=== PATIENT | male | born 1945 | race Caucasian/White ===

== ENCOUNTER → 2018-01-26 | Outpatient (CLI) | payer OTHER ==
[~2018-01-26] MED LIST: ACCUNEB SO1.25 MG/1 INH; ADULT LOW DOSE81 MG PO; MULTIVITAMINS PO; NEXIUM20 MG PO; OMEPRAZOLE40 MG PO; PRAVACHOL20 MG PO; PRAVASTATIN SOD20 MG PO; SYMBICORT160 MCG/4. INH; VENTOLIN HFA INH8 GM INH
== END ==
LOC: M.RAD 13:35
DX: J44.1 Chronic obstructive pulmonary disease with (acute) exacerbation (principal); R07.81 Pleurodynia

== ENCOUNTER → 2019-10-17 | Outpatient (CLI) | payer MEDICARE ==
[~2019-10-17] MED LIST changes: +AUGMENTIN 500-1 EACH PO; +CHLORPROMAZINE25 M1 PO
[2019-10-17 10:05] LABS: CREATININE 0.9 mg/dL (0.6-1.3)
== END ==
LOC: M.LAB 10-16 09:54 → M.MRI 11:30
PROVIDERS: ATTEND Internal Medicine
DX: R42 Dizziness and giddiness (principal); E78.5 Hyperlipidemia, unspecified; H53.2 Diplopia

== ENCOUNTER 2019-10-18 16:34 | Emergency (ER) | payer MEDICARE ==
[~2019-10-18] VITALS: Ht 180.3 cm; Wt 79.4 kg
[~2019-10-18 16:34] MED LIST changes: -AUGMENTIN 500-1 EACH PO; -CHLORPROMAZINE25 M1 PO
[2019-10-18 17:21] LABS: URINE BILIRUBIN NEGATIVE (Negative); URINE BLOOD NEGATIVE (Negative); URINE CLARITY CLEAR; URINE COLOR YELLOW; URINE GLUCOSE-RANDOM NEGATIVE (Negative); URINE KETONES NEGATIVE (Negative); URINE LEUKOCYTES-REFLEX NEGATIVE (Negative); URINE NITRITE-REFLEX NEGATIVE (Negative); URINE PROTEIN NEGATIVE (Negative); URINE UROBILINOGEN 0.2 E.U./dl (0.2-1.0)
[2019-10-18 17:54] LABS: ABSOLUTE BASOPHILS 0.1 thou/uL (0.0-0.2); ABSOLUTE EOSINOPHILS 0.3 thou/uL (0.0-0.7); ABSOLUTE MONOCYTES 0.7 thou/uL (0.0-1.2); ABSOLUTE NEUTROPHILS 5.2 thou/uL (1.6-8.1); EOSINOPHILS 3.4 %; HEMATOCRIT 40.1 % (42.0-52.0); HEMOGLOBIN 14.1 gm/dL (14.0-18.0); LYMPHOCYTES 23.7 %; MCH 31.7 pg (26.0-34.0); MCHC 35.2 g/dL (28.0-37.0); MCV 90.2 fL (80.0-100.0); MONOCYTES 8.4 %; MPV 8.2 fl. (7.2-11.1); NUCLEATED RBCS 0 /100WBC; PLATELET COUNT* 278 thou/uL (150-400); POLYS 63.5 %; RBC 4.44 mil/uL (4.50-6.00); RDW-CV 13.6 % (10.5-14.5); WBC 8.2 thou/uL (4.0-11.0)
[2019-10-18 18:04] LABS: CREATININE 0.9 mg/dL (0.6-1.3); POTASSIUM 4.4 mmol/L (3.5-5.1)
[2019-10-18 18:09] LABS: ALBUMIN 3.5 g/dL (3.4-5.0); TOTAL BILIRUBIN 0.3 mg/dL (<0.1-1.0); TOTAL PROTEIN 7.7 g/dL (6.4-8.2)
[2019-10-18] MEDS ORDERED: AUGMENTIN 500-1 EACH PO (19:27)
[2019-10-18] MEDS ORDERED: CHLORPROMAZINE25 M1 PO (19:27)
[2019-10-18 19:58] VITALS: BP 120/80
--- NOTE | 2019-10-19 09:21 | EKG ---
[place] [address] ELECTROCARDIOGRAM REPORT Name: MALIKA LAO Room: [facility]#: [id number] Admission: 10/18/19 Attend Phys: Discharge: 10/18/19 Date of : 43 Date of Service: 10/18/191807 Report #: [id number] THIS REPORT FOR: //name// [facility] ED Test Date: 2019-10-18 Test Time: 18:08:47 Pat Name: MALIKA LAO Department: Room: Gender: Service Observer Chief: : 1945 Requested By: Eben Callahan Order Number: [id number] MD: Kimo Yarbrough Measurements Intervals [place] Rate: 63 P: 11 AR: 200 QRS: -37 QRSD: 88 T: 9 QT: 437 QTc: 448 Interpretive Statements Sinus rhythm Abnormal R-wave progression, early transition Inferior infarct, old Baseline wander in lead(s) II,III,aVF Compared to ECG 09/28/2013 18:47:27 Myocardial infarct finding now present Electronically Signed On 10-19-2019 9:21:25 CDT by Kimo Yarbrough [email or web address] <ELECTRONICALLY SIGNED> By: Kelley Yarbrough MD, [facility] 10/19/19 0921 07 07 Kelley Yarbrough MD, [facility] /EPI
== END 2019-10-18 20:42 | disposition home or self-care (01) ==
LOC: M.ERS 16:34
PROVIDERS: Physician Assistant
DX: J32.9 Chronic sinusitis, unspecified (principal); R06.6 Hiccough; R10.13 Epigastric pain; E78.00 Pure hypercholesterolemia, unspecified; J44.9 Chronic obstructive pulmonary disease, unspecified; K21.9 Gastro-esophageal reflux disease without esophagitis